=== PATIENT | male | born 1995 | race Caucasian/White ===

== ENCOUNTER 2018-04-06 15:21 | Emergency (ER) | payer OTHER ==
[2018-04-06] MEDS ORDERED: TDAP ADULT 0.5 ML INJ (BOOSTRIX) IM ONE (15:44)
--- NOTE | 2018-04-06 16:03 | EDPHY ---
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 Denies paresthesia. He irrigated the area and transported via private vehicle. Denies paresthesia. Denies sensory or motor deficits. PRIMARY CARE PROVIDER: Worker's compensation PHYSICAL EXAM (Prior to examination, patient consented to physical exam, hands were washed and my usual and customary physical exam procedures followed) 1) GENERAL: Well-developed, well-nourished, alert and oriented. Appears to be in no acute distress. 2) HEAD: Normocephalic 3) HEENT: sclera anicteric 4) LUNGS: Breathing comfortably. 5) SKIN: Left thumb proximal phalanx palmar aspect 2.5 cm well-demarcated linear laceration 6) MUSCULOSKELETAL: Flexion extension abduction abduction opposition intact no gross deficits. 7) NEUROLOGIC: Full sensation two-point discrimination intact distally Smoking Status: Never smoked Constitutional: Initial Vital Signs Temperature (C) 37.0 C 04/06/18 15:25 Heart Rate 78 04/06/18 15:25 Respiratory Rate 16 04/06/18 15:25 Blood Pressure 156/100 H 04/06/18 15:25 O2 Sat (%) 97 04/06/18 15:25 O2 Delivery Mode Room Air Allergies/Adverse Reactions: No Known Allergies Allergy (Unverified 04/06/18 15:24) Home Medications: Medication Instructions Recorded Cephalexin [Keflex] 500 mg PO QID 10 Days cap 04/06/18 levOFLOXACIN [levAQUIN (*)] 750 mg PO DAILY #5 tab 04/06/18 MDM/Departure - MDM Procedures: Procedure: Laceration repair. I explained the indications, risks and benefits for both laceration repair and anesthetic administration. Verbal consent was obtained from the patient. The laceration on the left thumb proximal phalanx was anesthetized using 0.5% bupivicaine without epinephrine. After anesthetic administered the patient was observed for a period of time and had no apparent adverse effects. The wound was cleaned, prepped, draped in normal sterile fashion and explored to its base. No foreign body seen, no foreign bodies palpated. There were no deep structures involved. No definitive tendon injury was identified. The wound was repaired with 5 simple interrupted 5 O Prolene suture . The wound repair was complex. The procedure was performed by myself. Patient has been informed that scarring will occur, although efforts have been made to minimize this. Procedure: Splint A Velcro thumb spica splint was applied by ER telecommunications field technician in order to minimize stress on the laceration site. After application of the splint I returned and re-examined the patient. The splint was adequately immobilizing the joint and distal to the splint the patient's circulation and sensation were intact. Patient shows no signs of compartment syndrome. Was given orthopedic precautions. Medications Given: Discontinued Medications Cephalexin HCl (Keflex) 500 mg PO EDNOW ONE PRN Reason: Protocol Stop: 04/06/18 16:06 Last Admin: 04/06/18 16:50 Dose: 500 mg Diphtheria/Tetanus/Acell Pertussis (Boostrix) 0.5 ml IM .ONCE ONE Stop: 04/06/18 15:45 Last Admin: 04/06/18 15:48 Dose: 0.5 ml Levofloxacin (Levaquin) 750 mg PO EDNOW ONE PRN Reason: Protocol Stop: 04/06/18 16:06 Last Admin: 04/06/18 16:50 Dose: 750 mg ED Course/Re-evaluation: This patient has an isolated left thumb laceration from exposure to sharp blade while working in fresh water. His tetanus has been updated. Patient I discussed antibiotic prophylaxis and coverage for AEEVM species (Aeromonas species, Edwardsiella tarda, Erysipelothrix rhusiopathiae, Vibrio vulnificus, and Mycobacterium marinum). Per [email or web address] recommendation is dual coverage with cephalexin and Levaquin. No concerns about salt water exposure or vibrio species or exposure to sewage contaminated water. No definitive tendon injury identified on exam however he has been informed this cannot be fully ruled out. I have therefore recommended follow up with Dr. Jorgito Blunt on-call hand surgery in the next 1-2 days. He is placed in a splint. I explained my usual and customary antibiotic precautions including fluoroquinolone precautions and increased risk of tendinopathy. Usual and customary wound precautions instructions have been provided. I saw this patient independently based on established practice protocols. Care of patient under supervision of secondary supervising physician Dr Cordero. - Depart Disposition: Home, Routine, Self-Care Clinical Impression: Laceration of left thumb Qualifiers: Encounter type: initial encounter Damage to nail status: without damage Foreign body presence: without foreign body Qualified Code(s): S61.012A - Laceration without foreign body of left thumb without damage to nail, initial encounter Condition: Good Instructions: Care For Your Stitches (ED), Laceration (ED) Additional Instructions: Return to the ER if you develop redness, swelling, discharge, warmth to the wound, red streaks going up your arm or any other symptoms that concern you. Stand Alone Forms: Work Comp Follow Up Prescriptions: Cephalexin [Keflex] 500 mg PO QID 10 Days cap levOFLOXACIN [levAQUIN (*)] 750 mg PO DAILY #5 tab Referrals: Jorgito Blunt MD [Medical Doctor] - 2-3 days, call for appt.
[2018-04-06] MEDS ORDERED: CEPHALEXIN 500 MG CAP PO ONE (16:05)
[2018-04-06 17:16] VITALS: BP 123/73
[2018-04-08] MEDS ORDERED: BUPIVACAINE 0.25% 30 ML SDV ONE (14:11)
[2018-04-08] MEDS ORDERED: LIDOCAINE 1% 300 MG/30 ML SDV ONE (14:11)
== END 2018-04-06 17:16 | disposition home or self-care (01) ==
PROC: 0HQGXZZ Repair Left Hand Skin, External Approach (ICD-10-PCS; principal; 2018-04-06)
DX: S61.012A Laceration without foreign body of left thumb without damage to nail, initial encounter (principal); Z23 Encounter for immunization; W26.8XXA Contact with other sharp object(s), not elsewhere classified, initial encounter; Y92.69 Other specified industrial and construction area as the place of occurrence of the external cause; Y99.0 Civilian activity done for income or pay; Y93.89 Activity, other specified
CPT/HCPCS: L3807

== ENCOUNTER 2018-04-08 14:00 | Day surgery (SDC) | payer OTHER ==
[~2018-04-08 14:00] MED LIST: ceFAZolin 2 GM/DEXTROSE 100 ML IV ONE
[2018-04-08] MEDS ORDERED: CEFAZOLIN 2 GM/DEXTROSE/100 ML BAG IV ONE (14:46)
[2018-04-08] MEDS ORDERED: MIDAZOLAM 2 MG/2 ML VIAL ONE (14:50)
[2018-04-08] MEDS ORDERED: PROPOFOL 200 MG/20 ML VIAL ONE (14:52)
[2018-04-08] MEDS ORDERED: LIDOCAINE 2% 100 MG/5 ML SYR ONE (14:52)
[2018-04-08] MEDS ORDERED: ONDANSETRON 4 MG/2 ML VIAL ONE (14:52)
[2018-04-08] MEDS ORDERED: fentaNYL 100 MCG/2 ML INJ ONE (14:52)
[2018-04-08] MEDS ORDERED: DEXAMETHASONE 4 MG/ML VIAL ONE (14:52)
--- NOTE | 2018-04-09 15:36 | GOP ---
[f rep st] OPERATIVE REPORT DATE OF OPERATION: 04/08/2018 SURGEON: Jorgito Blunt MD PREOPERATIVE DIAGNOSIS: Laceration of flexor pollicis longus tendon and ulnar side digital nerve, le ft thumb. POSTOPERATIVE DIAGNOSIS: Laceration of flexor pollicis longus tendon and ulnar side digital nerve, l eft thumb. PROCEDURE PERFORMED: Repair of same. FINDINGS: ESTIMATED BLOOD LOSS: Less than 10 mL. DESCRIPTION OF PROCEDURE: With the patient lying supine under general anesthesia, the left hand and forearm were prepped and draped in usual fashion. Tourniquet was inflated to 250 mmHg, and the preex isting incision was reopened and extended proximally and distally with zigzag flaps. The proximal an d distal ends of the tendon and nerve were identified. The oblique whitney of the thumb was vented to allow exposure and repair. The flexor tendon was repaired with 4-0 nylon double Morris suture, giv ing a 4-strand repair. In addition, a single 5-0 Prolene was placed at one of the oblique extensions of the laceration in a figure-eight fashion in order to clean up the end of the repair. The microsc ope was then brought in and ulnar side digital nerve was repaired with 9-0 nylon sutures. The skin w as closed with 5-0 Prolene. Dressings of Xeroform and gauze were applied. A 3-inch padded fiberglas s prefabricated splint was placed on the thumb, keeping the wrist in slight flexion and the thumb par tially flexed. Procedure was tolerated well. /[id number]/MODL
--- NOTE | 2018-04-09 15:36 | GHP ---
[f rep st] PREOP HISTORY AND PHYSICAL DATE OF ADMISSION: 04/08/2018 CHIEF COMPLAINT: Lacerated flexor pollicis longus and the radial side digital nerve, left thumb. 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 He was using a weed rake when he sustained an injury to his left nondominant león mb. He was sutured in the emergency room on April 06. PAST MEDICAL HISTORY: Unremarkable. ALLERGIES: He has no allergies. MEDICATIONS: He is on no medications. He does report occasional marijuana smoking. EXAMINATION: CARDIOVASCULAR: Heart sounds are normal RESPIRATORY: Exam shows clear with good air entry. EXTREMITIES: Exam reveals a clean closed laceration of the left thumb with absence of function of th e flexor pollicis longus tendon and of the ulnar side digital nerve. IMPRESSION: Fit for procedure. PLAN: Explore left thumb repair of flexor pollicis longus tendon and ulnar side digital nerve joint. /[id number]/MODL
== END 2018-04-08 17:50 | disposition home or self-care (01) ==
LOC: FSGY 14:00
PROVIDERS: ATTEND Advanced Practice Midwife
PROC: 01Q40ZZ Repair Ulnar Nerve, Open Approach (ICD-10-PCS; principal; 2018-04-08 15:30)
PROC: 0LQ80ZZ Repair Left Hand Tendon, Open Approach (ICD-10-PCS; principal; 2018-04-08 15:30)
DX: S66.022A Laceration of long flexor muscle, fascia and tendon of left thumb at wrist and hand level, initial encounter (principal); S64.32XA Injury of digital nerve of left thumb, initial encounter; W26.8XXA Contact with other sharp object(s), not elsewhere classified, initial encounter; Y92.9 Unspecified place or not applicable
CPT/HCPCS: J0690; J1100; J2001; J2250; J2405; J2704; J3010